=== PATIENT | female | born 1970 | race Caucasian/White ===

== ENCOUNTER → 2017-03-05 | Outpatient (CLI) | payer SELFPAY | END | disposition home or self-care (01) | LOC: CFH 10:06 | PROVIDERS: ATTEND Chiropractor | DX: M25.552 Pain in left hip (principal); M54.5 Low back pain; Z96.642 Presence of left artificial hip joint | CPT/HCPCS: 72170 ==

== ENCOUNTER → 2017-04-27 | Outpatient (CLI) | payer MEDICAID | END | disposition home or self-care (01) | LOC: RAD 07:41 | PROVIDERS: ATTEND Surgery | DX: Z01.818 Encounter for other preprocedural examination (principal); E66.01 Morbid (severe) obesity due to excess calories; Z96.642 Presence of left artificial hip joint | CPT/HCPCS: 74241 ==

== ENCOUNTER → 2017-06-18 | Outpatient (CLI) | payer MEDICAID | END | disposition home or self-care (01) | LOC: CFH 12:24 → EDSTATUS 13:30 | PROVIDERS: ATTEND Nurse Practitioner Primary Care | DX: Z12.31 Encounter for screening mammogram for malignant neoplasm of breast (principal); M51.26 Other intervertebral disc displacement, lumbar region; M51.36 Other intervertebral disc degeneration, lumbar region; S39.92XA Unspecified injury of lower back, initial encounter; X58.XXXA Exposure to other specified factors, initial encounter; Y93.89 Activity, other specified; Y92.89 Other specified places as the place of occurrence of the external cause; Y99.8 Other external cause status | CPT/HCPCS: 72148; 77063; 77067 ==

== ENCOUNTER 2018-09-22 14:22 | Outpatient (CLI) | payer MEDICAID | END 2018-09-22 23:59 | disposition home or self-care (01) | LOC: CFH 14:22 | PROVIDERS: ATTEND Nurse Practitioner Primary Care | DX: N64.4 Mastodynia (principal) | CPT/HCPCS: 76642; 77066; G0279 ==

== ENCOUNTER 2021-02-05 16:00 | Emergency (ER) | payer MEDICAID ==
[~2021-02-05] VITALS: Ht 172.7 cm; Wt 136.0 kg
--- NOTE | 2021-02-05 16:48 | NUR ---
ALUMNAE SECRETARY: PT TO ROOM FROM JULISSA BENAVIDES
--- NOTE | 2021-02-05 16:57 | NUR ---
ASSUMED CARE OF PATIENT. PATIENT REPORTS A BRUISE/SWELLING NOTED TO LEFT UPPER LEG. VS STABLE. NO ACUTE DISTRESS NOTED. CALL LIGHT IN PLACE. WILL CONTINUE TO MONITOR.
--- NOTE | 2021-02-05 17:37 | NUR ---
US IN ROOM
[2021-02-05 18:18] VITALS: BP 168/102
--- NOTE | 2021-02-05 18:33 | NUR ---
REPORT GIVEN TO KELLY REYNA
--- NOTE | 2021-02-05 20:24 | NUR ---
pt educated on dc instructions, verbalized understanding. ambulatory to dc desk with steady gait.
== END 2021-02-05 20:27 | disposition home or self-care (01) ==
LOC: ED 18:40
DX: I80.01 Phlebitis and thrombophlebitis of superficial vessels of right lower extremity (principal); L03.115 Cellulitis of right lower limb
CPT/HCPCS: 99284